=== PATIENT | male | born 2000 | race Caucasian/White ===

== ENCOUNTER 2022-12-27 20:13 | Emergency (ER) | payer OTHER ==
[2022-12-27 20:17] VITALS: BP 123/79; PULSE 98; RESP 18; TEMP 97.8; BMI 25.1
[2022-12-27] MEDS ORDERED: DIPHTH,PERTUSS(ACELL),TET 0.5 ML DISP.SYRIN IM ONE ×2 (20:40→21:30)
[2022-12-27] MEDS ORDERED: ACETAMINOPHEN 325 MG TABLET (FP) PO ONE (22:04)
[2022-12-27] MEDS ORDERED: ACETAMINOPHEN 500 MG TABLET (FP) ONE (22:22)
== END 2022-12-27 22:36 | disposition home or self-care (01) ==
LOC: JER 20:13
PROC: 0HQ1XZZ Repair Face Skin, External Approach (ICD-10-PCS; principal; 2022-12-27)
PROC: 3E0234Z Introduction of Serum, Toxoid and Vaccine into Muscle, Percutaneous Approach (ICD-10-PCS; 2022-12-27)
DX: S01.511A Laceration without foreign body of lip, initial encounter (principal); W22.8XXA Striking against or struck by other objects, initial encounter; Y93.67 Activity, basketball
CPT/HCPCS: 12011-25; 70450-TC; 90471; 90715; 99284-25